=== PATIENT | male | born 1955 | race Caucasian/White ===

== ENCOUNTER 2016-10-01 12:57 | Inpatient (IN) | payer OTHER, MEDICARE ==
[~2016-10-01] VITALS: Ht 170.2 cm; Wt 120.0 kg
[~2016-10-01 12:57] MED LIST: NAPR500 PO; SERT100 PO; TYLE3 PO; ZOCO40TA PO; ZYPR10TA PO
[2016-10-01] MEDS ORDERED: SODIUM CHLOR 0.9% 1000 ML INJ 1,000 ML IV SCH (13:11)
[2016-10-01] MEDS ORDERED: SODIUM CHLORIDE 0.9% FLUSH 5 ML FLUSH IV FLUSH PRN (13:15)
[2016-10-01] MEDS ORDERED: DEXAMETHASONE SOD PHOS 4 MG/ML VIAL IV PUSH ONE (13:15)
[2016-10-01 13:29] VITALS: BP 105/56; PULSE 65; RESP 18; TEMP 97.2; O2SAT 95
--- NOTE | 2016-10-01 13:36 | PD ---
HPI Chief Complaint: Altered Mental Status Time Seen by Provider: 13:03 Travel History International Travel<30 days: No Contact w/Intl Traveler<30days: No Traveled to known affect area: No History of Present Illness HPI This is a 61-year-old male history of abscesses disease, hypertension, bipolar disorder, who presents here from the [place] [facility] for altered mental status. The patient denies any chest pain, chest pressure. He does seem somewhat confused however is able to answer questions. He does not know the day of the week but knows the year or the president and where he has. 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 There is no reported fevers, chills. He does report mild headache. He denies any neck pain or neck stiffness. He does report nausea vomiting today and yesterday. He denies any diarrhea. PFSH Past Medical History Hx Anticoagulant Therapy: Yes Bipolar Disorder: Yes Past Surgical History Tonsillectomy: Yes Social History Alcohol Use: No Tobacco Use: No Substance Use: No Allergies-Medications (Allergen,Severity, Reaction): Coded Allergies: No Known Allergies (Verified , 08/19/08) Reported Meds & Prescriptions Reported Meds & Active Scripts Active Review of Systems Except as stated in HPI: all other systems reviewed are Neg Eyes: No: Blurred Vision, Photophobia HENT: Positive: Headaches, No: Lightheadedness, Neck Stiffness, Neck Pain Cardiovascular: No: Chest Pain or Discomfort, Palpitations Respiratory: No: Cough, Shortness of Breath Gastrointestinal: Positive: Nausea, Vomiting, No: Diarrhea, Abdominal Pain Genitourinary: Positive: Other (strong smelling urine), No: Incontinence Musculoskeletal: Positive: Weakness (generalized), No: Pain Neurologic: Positive: Weakness (generalized), Headache (confusion mild), Other , No: Dizziness, Focal Abnormalities, Incontinence Physical Exam Narrative GENERAL: Well-developed well-nourished gentleman in no acute respiratory distress. SKIN: Focused skin assessment warm/dry. HEAD: Atraumatic. Normocephalic. EYES:No scleral icterus. No injection or drainage. ENT: No nasal bleeding or discharge. Mucous membranes pink and moist. NECK: Trachea midline. Supple. CARDIOVASCULAR: Regular rate and rhythm. No murmur appreciated. RESPIRATORY: No accessory muscle use. Clear to auscultation. Breath sounds equal bilaterally. GASTROINTESTINAL: Abdomen soft, non-tender, nondistended. MUSCULOSKELETAL: No obvious deformities. No clubbing. No cyanosis. 1+ edema to the bilateral lower extremities NEUROLOGICAL: Awake and mildly confused. No obvious cranial nerve deficits. Motor grossly within normal limits. Normal speech. Data Data Last Documented VS Vital Signs Date Time Temp Pulse Resp B/P Pulse Ox O2 Delivery O2 Flow Rate FiO2 10/01/16 13:47 76 18 98 Room Air 10/01/16 13:29 97.2 105/56 Orders Electrocardiogram (10/01/16 13:11) Ammonia (10/01/16 13:11) Complete Blood Count With Diff (10/01/16 13:11) Comprehensive Metabolic Panel (10/01/16 13:11) Chest, Single Ap (10/01/16 13:11) Ct Brain W/O Iv Contrast(Rout) (10/01/16 13:11) Blood Glucose (10/01/16 13:11) Ecg Monitoring (10/01/16 13:11) Iv Access Insert/Monitor (10/01/16 13:11) Oximetry (10/01/16 13:11) Sodium Chloride 0.9% Flush (Ns Flush) (10/01/16 13:15) Sodium Chlor 0.9% 1000 Ml Inj (Ns 1000 M (10/01/16 13:11) Dexamethasone Inj (Decadron Inj) (10/01/16 13:15) Sodium Chlor 0.9% 1000 Ml Inj (Ns 1000 M (10/01/16 15:00) Admit Order (Ed Use Only) (10/01/16 15:06) Labs Laboratory Tests Test 10/01/16 13:35 White Blood Count 8.7 TH/MM3 Red Blood Count 4.17 MIL/MM3 Hemoglobin 12.7 GM/DL Hematocrit 35.4 % Mean Corpuscular Volume 84.8 FL Mean Corpuscular Hemoglobin 30.5 PG Mean Corpuscular Hemoglobin 35.9 % Concent Red Cell Distribution Width 13.1 % Platelet Count 142 TH/MM3 Mean Platelet Volume 7.3 FL Neutrophils (%) (Auto) 59.3 % Lymphocytes (%) (Auto) 15.5 % Monocytes (%) (Auto) 11.9 % Eosinophils (%) (Auto) 12.6 % Basophils (%) (Auto) 0.7 % Neutrophils # (Auto) 5.2 TH/MM3 Lymphocytes # (Auto) 1.3 TH/MM3 Monocytes # (Auto) 1.0 TH/MM3 Eosinophils # (Auto) 1.1 TH/MM3 Basophils # (Auto) 0.1 TH/MM3 CBC Comment DIFF FINAL Differential Comment Sodium Level 128 MEQ/L Potassium Level 3.2 MEQ/L Chloride Level 90 MEQ/L Carbon Dioxide Level 30.4 MEQ/L Anion Gap 8 MEQ/L Blood Urea Nitrogen 16 MG/DL Creatinine 0.94 MG/DL Estimat Glomerular Filtration 82 ML/MIN Rate Random Glucose 111 MG/DL Calcium Level 8.6 MG/DL Total Bilirubin 0.6 MG/DL Aspartate Amino Transf 17 U/L (AST/SGOT) Alanine Aminotransferase 32 U/L (ALT/SGPT) Alkaline Phosphatase 65 U/L Ammonia 55 MCMOL/L Total Protein 6.1 GM/DL Albumin 3.2 GM/DL MDM Medical Decision Making Medical Screen Exam Complete: Yes Emergency Medical Condition: Yes Differential Diagnosis [place]'s crisis versus CVA versus metabolic derangement Narrative Course This is a 61-year-old male with a history of Frantz's disease who was sent from the [place] for altered mental status. The patient does appear to be moderately confused. He was noted to have a blood pressure to 90 systolic initially by E VAC. It did come up to over 100 systolic. His sodium is also noted to be 128. He was given 4 mg of dexamethasone on admission. His mentation has improved however he is still slightly confused. Given his Frantz 's disease and his hyponatremia, he will be admitted to the hospital. I believe he meets full criteria as it will take more than [address] sodium. Cased was discussed with Dr. Berger who is working with Dr. Dumont. Diagnosis Primary Impression: Addisonian crisis Additional Impressions: Hyponatremia Hypokalemia Admitting Information Admitting Physician Requests: Admit Juan Diego Muniz MD Oct 01, 2016 13:36
[2016-10-01 13:53] LABS: AUTOMATED NEUTROPHIL # 5.2 TH/MM3 (1.8-7.7); BASOPHIL # 0.1 TH/MM3 (0-0.2); BASOPHIL % 0.7 % (0.0-2.0); EOSINOPHIL # 1.1 TH/MM3 (0-0.4); EOSINOPHIL % 12.6 % (0.0-4.0); HEMATOCRIT 35.4 % (39.0-51.0); HEMO FLAGS DIFF FINAL; LYMPH % 15.5 % (9.0-44.0); LYMPHOCYTE # 1.3 TH/MM3 (1.0-4.8); MEAN CELL VOLUME 84.8 FL (80.0-100.0); MEAN CORPUSCULAR HEMOGLOBIN 30.5 PG (27.0-34.0); MEAN CORPUSCULAR HGB CONC 35.9 % (32.0-36.0); MONO % 11.9 % (0.0-8.0); NEUT % 59.3 % (16.0-70.0); PLATELET COUNT 142 TH/MM3 (150-450); RED BLOOD COUNT 4.17 MIL/MM3 (4.50-5.90); RED CELL DISTRIBUTION WIDTH 13.1 % (11.6-17.2); WHITE BLOOD COUNT 8.7 TH/MM3 (4.0-11.0)
[2016-10-01 14:09] LABS: ALT (GPT) 32 U/L (12-78); ANION GAP 8 MEQ/L (5-15); AST (GOT) 17 U/L (15-37); BICARBONATE 30.4 MEQ/L (21.0-32.0); BLOOD UREA NITROGEN 16 MG/DL (7-18); CHLORIDE 90 MEQ/L (98-107); GLOMERULAR FILTRATION RATE 82 ML/MIN (>89); POTASSIUM 3.2 MEQ/L (3.5-5.1); SODIUM (NA) 128 MEQ/L (136-145)
--- NOTE | 2016-10-01 14:10 | RADRPT ---
EXAM DATE/TIME: 10/01/2016 13:17 [facility] COMPARISON: No previous studies available for comparison. INDICATIONS : Weakness, short of breath, chest pain. MEDICAL HISTORY : None. SURGICAL HISTORY : None. ENCOUNTER: Initial ACUITY: 2 days PAIN SCORE: 10/10 LOCATION: Bilateral chest FINDINGS: A single view of the chest demonstrates the lungs to be symmetrically aerated without evidence of mas s, infiltrate or effusion. The cardiomediastinal contours are unremarkable. Osseous structures are intact. CONCLUSION: 1. No acute cardiopulmonary disease. Romero Newsome MD on October 01, 2016 at 14:07 Board Certified Radiologist. This report was verified electronically.
[2016-10-01 14:11] LABS: ALKALINE PHOSPHATASE 65 U/L (45-117); TOTAL BILIRUBIN ADULT 0.6 MG/DL (0.2-1.0)
--- NOTE | 2016-10-01 14:18 | RADRPT ---
EXAM DATE/TIME: 10/01/2016 14:02 [facility] COMPARISON: No previous studies available for comparison. INDICATIONS : Altered mental status. Low blood pressure. RADIATION DOSE: 45.03 CTDIvol (mGy) MEDICAL HISTORY : Bipolar disorder SURGICAL HISTORY : Tonsillectomy. ENCOUNTER: Initial ACUITY: 1 day PAIN SCALE: 5/10 LOCATION: cranial TECHNIQUE: Multiple contiguous axial images were obtained of the head. Using automated exposure control and adj ustment of the mA and/or kV according to patient size, radiation dose was kept as low as reasonably a chievable to obtain optimal diagnostic quality images. FINDINGS: CEREBRUM: The ventricles are normal for age. No evidence of midline shift, mass lesion, hemorrhage or acute in farction. No extra-axial fluid collections are seen. POSTERIOR FOSSA: The cerebellum and brainstem are intact. The 4th ventricle is midline. The cerebellopontine angle i s unremarkable. EXTRACRANIAL: The visualized portion of the orbits is intact. SKULL: The calvaria is intact. No evidence of skull fracture. CONCLUSION: No acute disease. Juan C Rooney MD on October 01, 2016 at 14:08 Board Certified Radiologist. This report was verified electronically.
[2016-10-01] MEDS ORDERED: LORazepam 1 MG TAB PO PRN (15:30)
[2016-10-01] MEDS ORDERED: LACTULOSE SYRUP 20 GM/30 ML CUP PO PRN (15:30)
[2016-10-01] MEDS ORDERED: HALOPERIDOL LACTATE 5 MG/ML AMP IM PRN (15:30)
[2016-10-01] MEDS ORDERED: SENNOSIDES 8.6 MG TAB PO PRN (15:30)
[2016-10-01] MEDS ORDERED: FLUMAZENIL 0.5 MG/5 ML VIAL IV PUSH PRN (15:30)
[2016-10-01] MEDS ORDERED: MAGNESIUM HYDROXIDE SUSP 30 ML CUP PO PRN (15:30)
[2016-10-01] MEDS ORDERED: SODIUM CHLORIDE 0.9% FLUSH 10 ML FLUSH IV FLUSH PRN (15:30)
[2016-10-01] MEDS ORDERED: BISACODYL 10 MG SUPP RECTAL PRN (15:30)
[2016-10-01] MEDS ORDERED: ONDANSETRON HCL 4 MG/2 ML VIAL IVP PRN (15:30)
[2016-10-01] MEDS ORDERED: ACETAMINOPHEN 325 MG TAB PO PRN (15:30)
[2016-10-01] MEDS ORDERED: LORazepam 2 MG TAB PO PRN (15:30)
[2016-10-01] MEDS ORDERED: NALOXONE HCL 0.4 MG/ML AMP IV PRN (15:30)
[2016-10-01] MEDS ORDERED: LORazepam 2 MG/ML VIAL IV PUSH PRN ×4 (15:30)
[2016-10-01] MEDS: SODIUM CHLOR 0.9% 1000 ML INJ 1,000 ML IV SCH ×2 (15:32→22:15)
[2016-10-01] MEDS ORDERED: POTASSIUM CHLORIDE 20 MEQ CONTROLLED RELEASE TAB PO ONE (15:45)
[2016-10-01 16:13] VITALS: BP 118/70
[2016-10-01] MEDS ORDERED: NAPR250T PO (16:18)
[2016-10-01] MEDS ORDERED: ZOLO100T PO (16:18)
[2016-10-01] MEDS ORDERED: ZYPR10TA PO (16:18)
[2016-10-01] MEDS ORDERED: ZOCO40TA PO (16:18)
[2016-10-01] MEDS ORDERED: POTA-163 PO (16:25)
[2016-10-01] MEDS ORDERED: FURO20TA PO (16:25)
[2016-10-01] MEDS ORDERED: BACL10TA PO (16:25)
[2016-10-01] MEDS ORDERED: HYDR-3133 PO (16:25)
[2016-10-01] MEDS ORDERED: TRAZ100T6 PO (16:25)
[2016-10-01] MEDS ORDERED: BUSP15TA PO (16:25)
[2016-10-01] MEDS ORDERED: GABA100C4 PO (16:25)
[2016-10-01] MEDS ORDERED: DIVA500T PO (16:25)
[2016-10-01] MEDS ORDERED: METO5TAB3 PO (16:25)
[2016-10-01] MEDS ORDERED: SYNT112T PO (16:25)
[2016-10-01] MEDS ORDERED: PILO5TAB3 PO (16:25)
--- NOTE | 2016-10-01 16:33 | HHI.HP ---
[facility] Service Family Medicine Primary Care Physician [facility] Admission Diagnosis Addisonian crisis, hyponatremia, transient hypotension, nausea/vomit Diagnoses: International Travel<30 Days: No Contact w/Intl Traveler<30days: No Known Affected Area: No History of Present Illness 61-year-old male diagnosed with [place]hooche[place]'s disease one year ago presents to the emergency department from the [place]. He was sent for hypotension and altered mental status. The patient has been altered since Thursday when he went to [employer] and forgot to pay. Since that time he has been altered according to his doing strange things and not understanding her requests. He has been increasingly fatigued since Thursday and has had multiple bouts of nausea and emesis. Per patient, he has taken all of his medications. He is followed by an occupational therapist home based here, Dr. Tim, and his home regimen is hydrocortisone. The patient is also hyponatremic and hypokalemic on his arrival to the emergency department he was initially hypotensive in the 90s/50s. (Licha Berger MD R3) Review of Systems Other Denies fever or chills Positive blurry vision, denies otorrhea, rhinorrhea Denies sore throat and cough No chest pain, palpitations, positive shortness of breath, chronic No abdominal pain Denies constipation/diarrhea. Endorses nausea/vomiting since Thursday Positive fatigue No rashes (Licha Berger MD R3) Past Family Social History Past Medical History Hypothyroidism Chronic lower back pain Hypertension Hyperlipidemia [place]hoochee's disease Past Surgical History Tonsillectomy in 1964 Reported Medications Baclofen BuSpar Depakote Furosemide Gabapentin Hydroxyzine Levothyroxine Metolazone Broxson Olanzapine Pilocarpine Potassium Zoloft Simvastatin Trazodone (Licha Berger MD R3) Allergies: Coded Allergies: No Known Allergies (Verified , 08/19/08) Family History Mother of stomach cancer. Father's history unknown. Social History Chewing tobacco since 1982. Smoking history in high school. Patient endorses occasional alcohol however his states that she finds bottles around the house and in the trunk of the car. States he may be a daily drinker. Denies marijuana or illicit drugs. (Licha Berger MD R3) Physical Exam Vital Signs Vital Signs Date Time Temp Pulse Resp B/P Pulse Ox O2 Delivery O2 Flow Rate FiO2 10/01/16 16:13 62 18 118/70 98 10/01/16 13:47 76 18 98 Room Air 10/01/16 13:29 97.2 65 18 105/56 95 Physical Exam Gen.: No acute distress Head: Normocephalic. Atraumatic. EENT: Pupils equal round and reactive to light. Nose without drainage. Airway intact. Throat without injection. Cardiovascular: Regular rate and rhythm. No murmurs, rubs or gallops. Respiratory: Lungs clear to auscultation bilaterally. No wheezes or rhonchi. Abdomen: Soft, nontender, nondistended. No peritoneal signs. Musculoskeletal: No gross deformities. 2+ nonpitting edema to the knees. Skin: No obvious rashes or erythema. Neuro: Sensory and motor grossly intact. Cranial nerves II through XII grossly intact. Alert and oriented 4 however some answers are inappropriate and circumferential. Psych: Appropriate mood and affect Laboratory Laboratory Tests Test 10/01/16 13:35 White Blood Count 8.7 Red Blood Count 4.17 Hemoglobin 12.7 Hematocrit 35.4 Mean Corpuscular Volume 84.8 Mean Corpuscular Hemoglobin 30.5 Mean Corpuscular Hemoglobin 35.9 Concent Red Cell Distribution Width 13.1 Platelet Count 142 Mean Platelet Volume 7.3 Neutrophils (%) (Auto) 59.3 Lymphocytes (%) (Auto) 15.5 Monocytes (%) (Auto) 11.9 Eosinophils (%) (Auto) 12.6 Basophils (%) (Auto) 0.7 Neutrophils # (Auto) 5.2 Lymphocytes # (Auto) 1.3 Monocytes # (Auto) 1.0 Eosinophils # (Auto) 1.1 Basophils # (Auto) 0.1 CBC Comment DIFF FINAL Differential Comment Sodium Level 128 Potassium Level 3.2 Chloride Level 90 Carbon Dioxide Level 30.4 Anion Gap 8 Blood Urea Nitrogen 16 Creatinine 0.94 Estimat Glomerular Filtration 82 Rate Random Glucose 111 Calcium Level 8.6 Total Bilirubin 0.6 Aspartate Amino Transf 17 (AST/SGOT) Alanine Aminotransferase 32 (ALT/SGPT) Alkaline Phosphatase 65 Ammonia 55 Total Protein 6.1 Albumin 3.2 (Licha Berger MD R3) Result Diagram: 10/01/16 1335 10/01/16 1335 Assessment and Plan Assessment and Plan 61-year-old male with past medical history significant for Frantz's disease and multiple medical comorbidities presents with hypotension, hyponatremia and hypokalemia with suspected addisonian crisis. 1. Acute on chronic adrenal insufficiency Patient states that he has been taking his medication however has been experiencing nausea vomiting over the past few days. And his altered state it is unclear how much of his hydrocortisone he has actually been receiving. Given dexamethasone with good results in the emergency department. Started on stress dose steroids hydrocortisone 100 mg every 8 hours, will transition to maintenance steroids likely tomorrow. Hyponatremia and hypokalemia likely related to acute adrenal insufficiency. Patient started on normal saline and given 80 mEq potassium. Repeat BMP at 2100. Hypotension also likely secondary to acute adrenal insufficiency. Fluids as above. Continue to monitor. Steroids as above. Concern for underlying heart disease, given large volume of fluids patient will be receiving Echo pending. 2. Hypertension Continue home medications with hold parameters 3. Hyperlipidemia Continue home medications 4. Mood disorder Continue home medications 5. Chronic low back pain Continue home medications 6. Possible alcohol abuse CIWA protocol and folate/thiamine. 7. FEN Fluids normal saline at 1 25 cc/hour Electrolytes, potassium repleted as above. Continue to monitor Regular diet Heparin 5000 units every 8 hours Code Status Full code (Licha Berger MD R3) Attending Attestation The patient has been seen and examined. The chart and all resident notes have been reviewed. I agree that inpatient care is appropriate and that a two midnight stay is expected for the reasons documented in the resident history and physical. I have discussed this with the resident and certify the resident s order for inpatient admission. Patient seen and examined. Case reviewed and discussed Please refer to resident H&P for further details regarding HPI, ROS, PMH, SurgHx , FH and SocHX IN summary, patient is a 61yoM with a history of Chattahoochee's disease, followed by Dr. Tim, presenting for several days of confusion, being off balance and feeling weak His is present in the ED Patient states he has been taking his medication as directed GENERAL: obese, male, wdwn SKIN: Warm and dry. No rashes HEAD: Normocephalic. AT EYES: No scleral icterus. No injection or drainage. ENT: OP clear. MM slightly dry NECK: Supple, trachea midline. No JVD or lymphadenopathy. CARDIOVASCULAR: Regular rate and rhythm without murmurs, gallops, or rubs. RESPIRATORY: Breath sounds equal bilaterally. No accessory muscle use. GASTROINTESTINAL: Abdomen soft, non-tender, nondistended. Obese, Normal active BS MUSCULOSKELETAL: No cyanosis, there is 1-2+ symmetric edema to mid calf. BACK: Nontender without obvious deformity. No CVA tenderness. NEURO: Awake, sleepy, follows commands, oriented to person, place, time. Does seem a little slow to respond and sometimes does not answer appropriately. 61yoM admitted with: Addisonian crisis Hyponatremia Hypokalemia Fluid retention HTN Tobacco dependence Regular alcohol use Hypothyroidism Chronic lower back pain Hypertension Hyperlipidemia Frantz's disease High dose steroids Serial BMP IVF Resume home meds as appropriate Neurochecks Patient seen and examined. Case reviewed and discussed Agree with plan of care as discussed with me and documented in the resident note. (Jacinta Dumont MD) Problem List: (1) Addisonian crisis Status: Acute (2) Hyponatremia Status: Acute (3) Hypokalemia Status: Acute (4) Hypotension Status: Acute (5) HTN (hypertension) Status: Chronic (6) Chronic pain Status: Chronic (7) HLD (hyperlipidemia) Status: Chronic (Licha Berger MD R3) Physician Certification 2 Midnight Certification Type: Admission for Inpatient Services Order for Inpatient Services The services are ordered in accordance with Medicare regulations or non- Medicare payer requirements, as applicable. In the case of services not specified as inpatient-only, they are appropriately provided as inpatient services in accordance with the 2-midnight benchmark. Estimated LOS (days): 2 2 days is the estimated time the patient will need to remain in the hospital, assuming treatment plan goals are met and no additional complications. Post-Hospital Plan: Home (Licha Berger MD R3) Licha Berger MD R3 Oct 01, 2016 16:33 Jacinta Dumont MD Oct 01, 2016 21:29
--- NOTE | 2016-10-01 16:42 | RADRPT ---
EXAM DATE/TIME: 10/01/2016 15:50 [facility] COMPARISON: No previous studies available for comparison. INDICATIONS : Bilateral leg swelling. MEDICAL HISTORY : Hypercholesterolemia. Hypertension. Glaucoma. Coronary artery disease. Bipolar disorder. Addisons di sease. SURGICAL HISTORY : Tonsillectomy. ENCOUNTER: Initial ACUITY: 4 - 6 days PAIN SCORE: 10/10 LOCATION: Bilateral legs. TECHNIQUE: Venous ultrasound of the left and right leg was performed from the inguinal ligament to the proximal calf. Real-time, color Doppler and spectral tracing, compression and augmentation techniques were us ed. FINDINGS: RIGHT LEG: There is normal compressibility of the deep venous system from the inguinal region to the proximal ca lf. No echogenic clot is seen in the lumen of the common femoral, femoral, popliteal, and posterior tibial veins. There is a normal response of the venous system to proximal and distal augmentation an d respiration. LEFT LEG: There is normal compressibility of the deep venous system from the inguinal region to the proximal ca lf. No echogenic clot is seen in the lumen of the common femoral, femoral, popliteal, and posterior tibial veins. There is a normal response of the venous system to proximal and distal augmentation an d respiration. CONCLUSION: No DVT. Juan C Rooney MD on October 01, 2016 at 16:39 Board Certified Radiologist. This report was verified electronically.
[2016-10-01] MEDS ORDERED: BACLOFEN 10 MG TAB PO PRN (16:45)
[2016-10-01 16:57] VITALS: BP 132/75; PULSE 64; RESP 18; TEMP 96.1; O2SAT 97
[2016-10-01] MEDS: POTASSIUM CHLOR 10 MEQ PREMIX 100 ML IV SCH ×4 (17:38→21:27)
[2016-10-01] MEDS: hydrOXYzine HCL 25 MG TAB PO SCH (18:12)
[2016-10-01] MEDS: PILOCARPINE HCL 5 MG TAB PO SCH (18:44)
[2016-10-01 19:30] VITALS: PULSE 64
[2016-10-01 20:00] VITALS: BP 136/77; PULSE 99; RESP 20; TEMP 98.7; O2SAT 95
[2016-10-01] MEDS: DIVALPROEX DR 500 MG TABEC PO SCH (20:04)
[2016-10-01] MEDS: GABAPENTIN 100 MG CAP PO SCH (20:06)
[2016-10-01] MEDS: SODIUM CHLORIDE 0.9% FLUSH 10 ML FLUSH IV FLUSH SCH (20:06)
[2016-10-01] MEDS: DOCUSATE SODIUM 50 MG/SENNA 8.6 MG TAB PO SCH (20:07)
[2016-10-01] MEDS: FUROSEMIDE 20 MG TAB PO SCH (20:07)
[2016-10-01] MEDS: busPIRone HCL 5 MG TAB PO SCH (20:07)
[2016-10-01] MEDS ORDERED: traZODone HCL 100 MG TAB PO SCH (21:00)
--- NOTE | 2016-10-01 21:21 | ECHRPT ---
Indication: Shortness of breath CONCLUSIONS BP: 93 / 64 HR: Rhythm: Sinus MEASUREMENTS (Male / Female) Normal Values Technical Quality:Very technically difficult study 2D ECHO LV Diastolic Diameter PLAX 4.6 cm 4.2 - 5.9 / 3.9 - 5.3 cm LV Systolic Diameter PLAX 3.6 cm IVS Diastolic Thickness 1.1 cm 0.6 - 1.0 / 0.6 - 0.9 cm LVPW Diastolic Thickness 1.2 cm 0.6 - 1.0 / 0.6 - 0.9 cm LV Relative Wall Thickness 0.5 LVOT Diameter 2.0 cm Aortic Root Diameter 3.0 cm LA Systolic Diameter LX 3.1 cm 3.0 - 4.0 / 2.7 - 3.8 cm M-MODE AV Cusp Separation MM 2.0 cm DOPPLER AV Peak Velocity 83.9 cm/s AV Peak Gradient 2.8 mmHg AV Mean Gradient 2.0 mmHg AV Velocity Time Integral 16.3 cm LVOT Peak Velocity 62.4 cm/s LVOT Peak Gradient 1.6 mmHg LVOT Velocity Time Integral 13.0 cm AV Area Cont Eq vti 2.5 cm AV Area Cont Eq pk 2.3 cm Mitral E Point Velocity 57.3 cm/s Mitral A Point Velocity 71.6 cm/s Mitral E to A Ratio 0.8 PV Peak Velocity 68.4 cm/s PV Peak Gradient 1.9 mmHg FINDINGS LEFT VENTRICLE Normal left ventricular size. Wall thickness is normal. The left ventricular systolic function is normal with an estimated ejection fraction of 55%. Doppler parameters are consistent with impaired left ventricular relaxtion (grade 1 diastolic dysfun ction). RIGHT VENTRICLE Normal right ventricular size and systolic function. LEFT ATRIUM The left atrial size is normal. RIGHT ATRIUM The right atrial size is normal. ATRIAL SEPTUM The interatrial septum not well visualized. AORTA The aortic root and proximal ascending aorta are not well visualized. MITRAL VALVE Structurally normal mitral valve. AORTIC VALVE Aortic valve sclerosis is present. TRICUSPID VALVE The tricuspid valve is not well visualized. PULMONARY VALVE The pulmonary valve is not well visualized. VESSELS . The inferior vena cava was not well visualized. PERICARDIUM No pericardial effusion. Armando Rivas MD, FACC (Electronically Signed) Final Date:01 October 2016 21:11
[2016-10-01] MEDS: HEPARIN SODIUM - SQ 10,000 UNITS/ML VIAL SQ SCH (21:38)
[2016-10-01] MEDS: HYDROCORTISONE SOD SUCCINATE 100 MG VIAL IV PUSH SCH (21:41)
[2016-10-01] MEDS ORDERED: LACTULOSE SYRUP 20 GM/30 ML CUP PO ONE (22:00)
[2016-10-01 22:41] LABS: BICARBONATE 26.5 MEQ/L (21.0-32.0); POTASSIUM 3.5 MEQ/L (3.5-5.1)
[2016-10-02] VITALS: BP 114/65; PULSE 68; RESP 18; TEMP 96.4; O2SAT 95
[2016-10-02] MEDS: PILOCARPINE HCL 5 MG TAB PO SCH ×3 (00:43→11:35)
[2016-10-02 04:00] VITALS: BP_SYST 120; BP_SYST 149; BP_DIAS 70; BP_DIAS 96; PULSE 65; PULSE 96; RESP 18; TEMP 98.7; O2SAT 98
[2016-10-02] MEDS: HEPARIN SODIUM - SQ 10,000 UNITS/ML VIAL SQ SCH ×2 (05:03→14:14)
[2016-10-02] MEDS: HYDROCORTISONE SOD SUCCINATE 100 MG VIAL IV PUSH SCH ×2 (05:04→15:28)
[2016-10-02] MEDS: SODIUM CHLOR 0.9% 1000 ML INJ 1,000 ML IV SCH ×2 (05:04→12:35)
[2016-10-02] MEDS ORDERED: LEVOTHYROXINE SODIUM 112 MCG TAB PO SCH (06:00)
[2016-10-02 07:27] VITALS: PULSE 69
[2016-10-02 08:06] VITALS: BP 132/63; PULSE 72; RESP 20; TEMP 97.3; O2SAT 96
[2016-10-02] MEDS: SODIUM CHLORIDE 0.9% FLUSH 10 ML FLUSH IV FLUSH SCH (08:15)
[2016-10-02] MEDS: busPIRone HCL 5 MG TAB PO SCH (08:17)
[2016-10-02] MEDS: GABAPENTIN 100 MG CAP PO SCH (08:17)
[2016-10-02] MEDS: DOCUSATE SODIUM 50 MG/SENNA 8.6 MG TAB PO SCH (08:17)
[2016-10-02] MEDS: DIVALPROEX DR 500 MG TABEC PO SCH (08:17)
[2016-10-02] MEDS: FUROSEMIDE 20 MG TAB PO SCH (08:18)
[2016-10-02] MEDS: hydrOXYzine HCL 25 MG TAB PO SCH ×2 (08:18→12:35)
[2016-10-02] MEDS ORDERED: SERTRALINE HCL 100 MG TAB PO SCH (09:00)
[2016-10-02] MEDS ORDERED: THIAMINE HCL 100 MG TAB PO SCH (09:00)
[2016-10-02] MEDS ORDERED: MULTIVITAMINS/MINERALS THERAPEUTIC TAB PO SCH (09:00)
[2016-10-02] MEDS ORDERED: FOLIC ACID 1 MG TAB PO SCH (09:00)
[2016-10-02] MEDS ORDERED: METOLAZONE 5 MG TAB PO SCH (09:00)
[2016-10-02] MEDS ORDERED: PRAVASTATIN SOD 80 MG TAB PO SCH (09:00)
[2016-10-02] MEDS ORDERED: OLANZapine 10 MG TAB PO SCH (09:00)
[2016-10-02 09:16] LABS: AUTOMATED NEUTROPHIL # 11.4 TH/MM3 (1.8-7.7); BASOPHIL % 0.1 % (0.0-2.0); EOSINOPHIL % 0.1 % (0.0-4.0); HEMATOCRIT 36.2 % (39.0-51.0); HEMO FLAGS DIFF FINAL; LYMPH % 7.4 % (9.0-44.0); MEAN CORPUSCULAR HEMOGLOBIN 30.3 PG (27.0-34.0); MEAN CORPUSCULAR HGB CONC 35.6 % (32.0-36.0); MONO % 4.1 % (0.0-8.0); NEUT % 88.3 % (16.0-70.0); PLATELET COUNT 144 TH/MM3 (150-450); RED BLOOD COUNT 4.26 MIL/MM3 (4.50-5.90); RED CELL DISTRIBUTION WIDTH 13.1 % (11.6-17.2)
[2016-10-02 09:38] LABS: ALT (GPT) 28 U/L (12-78); ANION GAP 12 MEQ/L (5-15); AST (GOT) 18 U/L (15-37); BLOOD UREA NITROGEN 13 MG/DL (7-18); CHLORIDE 96 MEQ/L (98-107); GLOMERULAR FILTRATION RATE 96 ML/MIN (>89); SODIUM (NA) 133 MEQ/L (136-145)
[2016-10-02 09:41] LABS: ALKALINE PHOSPHATASE 55 U/L (45-117); TOTAL BILIRUBIN ADULT 0.4 MG/DL (0.2-1.0)
[2016-10-02 12:06] VITALS: BP 126/59; PULSE 78; RESP 20; TEMP 97.1; O2SAT 97
--- NOTE | 2016-10-02 13:38 | HHI.DCPOC ---
Discharge Care Plan Goals to Promote Your Health * To prevent worsening of your condition and complications take all medications as prescribed * To maintain your health at the optimal level follow all discharge instructions Directions to Meet Your Goals Take your medications as prescribed Follow your dietary instruction Follow activity as directed Keep your appointments as scheduled Take your immunizations and boosters as scheduled If your symptoms worsen call your PCP, if no PCP go to Urgent Care Center or Emergency Room Smoking is Dangerous to Your Health. Avoid second hand smoke Call the 24-hour hour crisis hotline for domestic abuse at Licha Berger MD R3 Oct 02, 2016 13:38
--- NOTE | 2016-10-02 13:44 | HHI.FPPN ---
Subjective Remarks No acute events overnight. Afebrile, vital signs stable. Patient up and walking this morning. States he is feeling much better. Is ready to go home. ( Licha Berger MD R3) Objective Vitals Vital Signs Date Time Temp Pulse Resp B/P Pulse Ox O2 Delivery O2 Flow Rate FiO2 10/02/16 12:06 97.1 78 20 126/59 97 10/02/16 08:06 97.3 72 20 132/63 96 10/02/16 07:27 69 10/02/16 04:00 98.7 96 18 149/96 98 10/02/16 04:00 98.7 65 18 120/70 98 10/02/16 00:00 96.4 68 18 114/65 95 10/01/16 20:00 98.7 99 20 136/77 95 10/01/16 19:30 64 10/01/16 16:57 96.1 64 18 132/75 97 10/01/16 16:13 62 18 118/70 98 10/01/16 13:47 76 18 98 Room Air I/O 10/01/16 10/01/16 10/01/16 10/02/16 10/02/16 10/02/16 07:00 15:00 23:00 07:00 15:00 23:00 Intake Total 500 ml 1000 ml Output Total 1875 ml 600 ml Balance -1375 ml 400 ml Intake IV Total 500 ml 1000 ml Output Urine Total 1875 ml 600 ml (Licha Berger MD R3) Result Diagram: 10/02/16 0804 10/02/16 0804 Objective Remarks Gen.: No acute distress Head: Normocephalic. Atraumatic. EENT: Pupils equal round and reactive to light. Nose without drainage. Airway intact. Throat without injection. Cardiovascular: Regular rate and rhythm. No murmurs, rubs or gallops. Respiratory: Lungs clear to auscultation bilaterally. No wheezes or rhonchi. Abdomen: Soft, nontender, nondistended. No peritoneal signs. Musculoskeletal: No gross deformities. 2+ nonpitting edema to the knees. Skin: No obvious rashes or erythema. Neuro: Sensory and motor grossly intact. Cranial nerves II through XII grossly intact. Alert and oriented 4. Psych: Appropriate mood and affect (Licha Berger MD R3) A/P Assessment and Plan 61-year-old male with past medical history significant for Glenwood's disease and multiple medical comorbidities presents with hypotension, hyponatremia and hypokalemia with suspected addisonian crisis. 1. Acute on chronic adrenal insufficiency Patient states that he has been taking his medication however has been experiencing nausea vomiting over the past few days. And his altered state it is unclear how much of his hydrocortisone he has actually been receiving. Given dexamethasone with good results in the emergency department. Started on stress dose steroids hydrocortisone 100 mg every 8 hours, will transition to maintenance on discharge. Hyponatremia and hypokalemia likely related to acute adrenal insufficiency. Patient started on normal saline and given 80 mEq potassium. Repeat BMP wnl. Patient give an additional 40 mEq K prior to dc. Repeat BMP in 2 days, cc his [employer], Dr. Tim Hypotension also likely secondary to acute adrenal insufficiency. Fluids as above. Continue to monitor. Steroids as above. Spoke with Dr. Tim's office, patient with f/u appt 03/10 at 11:20 2. Hypertension Continue home medications with hold parameters 3. Hyperlipidemia Continue home medications 4. Mood disorder Continue home medications 5. Chronic low back pain Continue home medications 6. Possible alcohol abuse CIWA protocol and folate/thiamine. 7. FEN DC IVF Electrolytes, potassium repleted as above. Regular diet Heparin 5000 units every 8 hours (Licha Berger MD R3) Attending Attestation Patient seen and examined. Case reviewed and discussed Agree with plan of care as discussed with me and documented in the resident note. (Jacinta Dumont MD) Problem List: (1) Addisonian crisis Status: Acute (2) Hyponatremia Status: Acute (3) Hypokalemia Status: Acute (4) Hypotension Status: Acute (5) HTN (hypertension) Status: Chronic (6) Chronic pain Status: Chronic (7) HLD (hyperlipidemia) Status: Chronic (Licha Berger MD R3) Licha Berger MD R3 Oct 02, 2016 13:44 Jacinta Dumont MD Oct 06, 2016 14:40
--- NOTE | 2016-10-02 13:49 | EKG ---
Date Performed: 10/01/2016 Time Performed: 13:42:01 PTAGE: 61 years EKG: Sinus rhythm MODERATE INTRAVENTRICULAR CONDUCTION DELAY BORDERLINE ECG NO PREVIOUS TRACING DOCTOR: Diane Ortiz Interpretating Date/Time 10/02/2016 13:43:58
[2016-10-02] MEDS ORDERED: POTASSIUM CHLORIDE 20 MEQ CONTROLLED RELEASE TAB PO ONE (14:00)
[2016-10-02 15:57] VITALS: BP 120/59; PULSE 75; RESP 20; TEMP 96.1; O2SAT 96
== END 2016-10-02 17:30 | disposition home or self-care (01) | DRG 644 ==
LOC: NEPC 12:57 → NEDA 15:09 → N05B 16:28
PROVIDERS: ADMIT Family Medicine; ATTEND Family Medicine
DX: E27.2 Addisonian crisis (principal); E87.1 Hypo-osmolality and hyponatremia; I95.9 Hypotension, unspecified; I10 Essential (primary) hypertension; E03.9 Hypothyroidism, unspecified; E27.1 Primary adrenocortical insufficiency; E78.5 Hyperlipidemia, unspecified; E87.6 Hypokalemia; G89.29 Other chronic pain; F31.9 Bipolar disorder, unspecified; Z87.891 Personal history of nicotine dependence
CPT/HCPCS: 70450; 71010; 80048; 80053; 82140; 82948; 83735; 85025; 93005; 93306; 93970; 96361; 96374; J1100; J1644; J1720; J3480; J7030